=== PATIENT | female | born 1995 | race American Indian/Alaskan Native ===

== ENCOUNTER 2019-02-09 05:45 | Outpatient (CLI) | payer OTHER, MEDICAID ==
[2019-02-09 08:00] VITALS: BP 109/65
== END 2019-02-09 08:15 | disposition home or self-care (01) ==
LOC: TRG 05:45
PROVIDERS: ATTEND Obstetrics & Gynecology
DX: O62.8 Other abnormalities of forces of labor (principal); Z3A.39 39 weeks gestation of pregnancy
CPT/HCPCS: 59025